=== PATIENT | male | born 1940 | race Caucasian/White ===

== ENCOUNTER 2018-05-27 07:30 | Inpatient (IN) | payer MEDICARE, OTHER ==
[2018-05-27] MEDS ORDERED: Aspirin 81mg Chewable Tab PO STA (07:59)
[2018-05-27] MEDS ORDERED: NITROGLYCERIN OINT 2% 1 INCH PACKET TP STA (08:00)
--- NOTE | 2018-05-27 08:01 | ED Physician Chart ---
ED Chief Complaint/HPI - Patient Information Date Seen:: 05/27/18 Time Seen:: 07:45 Chief Complaint:: Chest Pain History of Present Illness:: onset x one day of exertional, burning type chest pain with dyspnea and elevated BP; pt denies trauma, H/As, neck pain, cough, Abd. Pain, A/N/V/D/C, fever, chills, or urinary s/s Allergies:: Allergies Allergy/AdvReac Type Severity Reaction Status Date / Time No Known Allergies Allergy Verified 05/27/18 07:46 Vitals:: Vital Signs - 8 hr 05/27/18 07:47 Temp 97.6 F HR 71 RR 16 BP 166/102 O2 Sat % 99 Historian:: Patient Review:: Nurse's Note Reviewed, Old Chart Reviewed ED Review of Systems - Review of Systems General/Constitutional: No fever, No chills, No weight loss, No weakness, No diaphoresis, No edema, No loss of appetite Skin: No skin lesions, No rash, No bruising Head: No headache, No light-headedness Eyes: No loss of vision, No pain, No diplopia ENT: No earache, No nasal drainage, No sore throat, No tinnitus Neck: No neck pain, No swelling, No thyromegaly, No stiffness, No mass noted Cardio Vascular: Chest pain, No palpitations, No PND, No orthopnea, No edema Pulmonary: SOB, No cough, No sputum, No wheezing GI: No nausea, No vomiting, No diarrhea, No pain, No melena, No hematochezia, No constipation, No hematemesis G/U: No dysuria, No frequency, No hematuria, No nacturia Musculoskeletal: No bone or joint pain, No back pain, No muscle pain Endocrine: No polyuria, No polydipsia Psychiatric: Prior psych history, No depression, Anxiety, No suicidal ideation, No homicidal ideation, No auditory hallucination, No visual hallucination Hematopoietic: No bruising, No lymphadenopathy Allergic/Immuno: No urticaria, No angioedema Neurological: No syncope, No focal symptoms, No weakness, No paresthesia, No headache, No seizure, No dizziness, No confusion, No vertigo ED Past Medical History - Past Medical History Obtainable: Yes Past Medical History: HTN Family History: HTN Social History: Non Smoker, No Alcohol, No Drug Use, Surgical History: other (Back Surgery) Psychiatricy History: Other (Anxiety) Medication: Reviewed Family Medical History - Family Member Mother History Unknown: Yes ED Physical Exam - Physical Examination General/Constitutional: Awake, Well-developed, well-nourished, Alert, No distress, GCS 15, Non-toxic appearing, Ambulatory Head: Atraumatic Eyes: Lids, conjuctiva normal, PERRL, EOMI Skin: Nl inspection, No rash, No skin lesions, No ecchymosis, Well hydrated, No lymphadenopathy ENMT: External ears, nose nl, TM canals nl, Nasal exam nl, Lips, teeth, gums nl , Oropharynx nl, Tonsils nl Neck: Nontender, Full ROM w/o pain, No JVD, No nuchal rigidity, No bruit, No mass, No stridor Respiratory: Nl effort/Exclusion, Clear to Auscultation, No Wheeze/Rhonchi/Rales Cardio Vascular: RRR, No murmur, gallop, rubs, NL S1 S2, Carotid/Femoral/Distal pulses equal bilaterally GI: No tenderness/rebounding/guarding, No organomegaly, No hernia, Normal BS's, Nondistended, No mass/bruits, No McBurney tenderness : No CVA tenderness Extremities: No tenderness or effusion, Full ROM, normal strength in all extremities, No edema, Normal digits & nails Neuro/Psych: Alert/oriented, DTR's symmetric, Normal sensory exam, Normal motor strength, Judgement/insight normal, Mood normal, Normal gait, No focal deficits Misc: Normal back, No paraspinal tenderness ED Labs/Radiology/EKG Results - Lab Results Comments:: Reviewed - Radiology Results Comments:: NAD - EKG Interpretations EKG Time:: 07:55 Rate & Rhythm: 76; NSR Comments:: RBBB; non-specific st-t changes ED Septic Shock - . Is Septic Shock (SBP<90, OR Lactate>4 mmol\L) present?: No - <6hrs of presentation: Vital Signs: Vital Signs - 8 hr 05/27/18 07:47 Temp 97.6 F HR 71 RR 16 BP 166/102 O2 Sat % 99 ED Reassessment (Disposition) - Reassessment Reassessment Condition:: Improved - Diagnosis Diagnosis:: Chest Pain; Uncontrolled Hypertension; Dyspnea; Angina Pectoris; Unstable Angina - Aftercare/Follow up Instructions Aftercare/Follow-Up Instructions:: Counseled pt regarding lab results/diagnosis & need follow up, Counseled pt & family regarding lab results/diagnosis & need follow up - Patient Disposition Discharge/Transfer:: Acute Care w/in this hosp Accepting Physician:: Dr. Claudio Time Called:: 929 Time Responded:: 09:30 Admitted to:: Telemetry Spoke to:: Dr. Claudio Admitting Medical Physician:: Dr. Claudio Condition at Disposition:: Stable, Improved
[2018-05-27] MEDS ORDERED: Aspirin 81mg Chewable Tab ONE (08:02)
[2018-05-27] MEDS ORDERED: NITROGLYCERIN OINT 2% 1 INCH PACKET TP ONE (08:03)
[2018-05-27 08:25] LABS: % BASOPHILS 0.4 % (0.0-2.0); % EOSINOPHILS 5.9 % (0.0-5.0); % LYMPHOCYTES 29.2 % (20.0-50.0); % MONOCYTES 9.7 % (2.0-10.0); % NEUTROPHILS 54.8 % (40.0-80.0); EOSINOPHILE ABSOLUTE 0.3 Th/cmm (0.1-0.4); HEMATOCRIT 46.8 % (41.0-60); HEMOGLOBIN 15.7 gm/dL (12-16); LYMPHOCYTE ABSOLUTE 1.7 Th/cmm (1.5-3.0); MEAN CELL VOLUME 94.1 fl (80-99); MEAN CORPUSCULAR HEMOGLOBIN 31.5 pg (27.0-31.0); MEAN CORPUSCULAR HGB CONC 33.5 pg (28.0-36.0); MEAN PLATELET VOLUME 7.1 fl; MONOCYTE ABSOLUTE 0.6 Th/cmm (0.3-1.0); NEUTROPHILE ABSOLUTE 3.1 Th/cmm (1.8-8.0); PLATELET COUNT 201 Th/cmm (150-400); RED BLOOD COUNT 4.97 Mil/cmm (3.80-5.80); RED CELL DISTRIBUTION WIDTH 12.3 % (11.5-20.0); WHITE BLOOD COUNT 5.7 Th/cmm (4.8-10.8)
[2018-05-27 08:38] LABS: ALB/GLOB RATIO 1.5 (1.0-1.8); ALBUMIN 4.1 gm/dL (4.2-5.5); ALKALINE PHOSPHATASE 39 U/L (34-104); BILIRUBIN,TOTAL 0.5 mg/dL (0.3-1.0); BUN - UREA NITROGEN 11 mg/dL (7-25); CALCIUM SERUM 9.6 mg/dL (8.6-10.3); CARBON DIOXIDE 26.8 mEq/L (21.0-31.0); CHLORIDE 104 mEq/L (98-107); CHOLESTEROL 174 mg/dL (<200); CREATININE - SERUM 0.9 mg/dL (0.7-1.3); CREATININE KINASE 99 U/L (30-223); GLUCOSE 110 mg/dL (70-105); HDL -HIGH DENSITY LIPOPROTEIN 41 mg/dL (23-92); POTASSIUM SERUM 3.8 mEq/L (3.5-5.1); SGOT 18 U/L (13-39); SGPT/ALT 13 U/L (7-52); SODIUM SERUM 137 mEq/L (136-145); TOTAL PROTEIN,SERUM 6.9 gm/dL (6.0-8.3); TRIGLYCERIDES 137 mg/dL (<150)
[2018-05-27 08:47] LABS: INR 1.01 (0.5-1.4); PROTHROMBIN TIME (TEST) 10.5 SECONDS (9.5-11.5)
[2018-05-27 09:29] LABS: DDIMER QUANT 125 ng/mL (100-400)
--- NOTE | 2018-05-27 09:42 | Diagnostic Imaging Report ---
Portable chest x-ray HISTORY: Pain The heart size appears to be at the upper limits of normal. No focal pulmonary processes. No hilar or mediastinal abnormalities. IMPRESSION: No acute abnormalities
[2018-05-27] MEDS ORDERED: Morphine Sulfate 2 mg/mL 1mL Syr IVP PRN (10:19)
--- NOTE | 2018-05-28 00:28 | Consultation ---
DATE OF CONSULTATION: 05/27/[address] Forrest Gaytan. HISTORY OF PRESENT ILLNESS: This is a 77-year-old male patient who is normally seen by a physician at [facility], had been complaining of having dizziness secondary to hypotension as the patient has changed his diet. The patient yesterday was working at his brother's house where he had a lot of sweating. The patient took potassium and magnesium. This morning when he was having sex with his , post after the sex, complained of burning sensation in the chest and not feeling good. At this time, the patient took his blood pressure and was over 200/110, hence the patient came to the Emergency Room. The patient has stopped his blood pressure medication for 2 weeks. PAST MEDICAL HISTORY: The patient has a history of hypertension. FAMILY HISTORY: Unremarkable. SOCIAL HISTORY: No history of smoking or alcohol abuse. ALLERGIES: No known allergies. PHYSICAL EXAMINATION: VITAL SIGNS: Blood pressure on admission was 154/90, at home 200/100, pulse 77, and respirations 20. HEAD: Normocephalic. No lumps or bumps. EYES: Pupils equal, reactive to light. Fundi show AV nicking, sclerae white, conjunctivae pink. NECK: Carotid 2+. Normal upstroke. JVD flat. Thyroid not palpable. Lymph nodes not palpable. CHEST: Shows increased AP diameter. No kyphosis, scoliosis. LUNGS: Bilateral bronchovesicular breath sounds. HEART: PMI fifth intercostal space with lateral to midclavicular line. S1, S2. No S3, S4, soft systolic murmur. ABDOMEN: Soft. Liver, spleen not palpable. No organomegaly. Bowel sounds active. NEUROLOGIC: Unremarkable. EXTREMITIES: Peripheral pulses 2+. No pedal edema. CLINICAL IMPRESSION: Atypical chest pain and accelerated hypertension. PLAN: Admit the patient. We will get antihypertensive treatment. Get troponin level, EKG, echocardiogram. JOB# [id number]
--- NOTE | 2018-05-28 09:23 | History and Physical ---
History of Present Illness - HPI Chief Complaint: Chest Pain HPI: 77 y/o male who presents to [facility] ER for chest pain x one day. Patient describes pain to be exertional chest pain, burning type chest pain and associated dyspnea and elevated BP. Patient denies trauma, headaches, neck pain, cough, and abd. Pain, A/N/V/D/C, fever, chills, or urinary s/s. Patient has a past medical history of HTN. While in the ER patient's initial labwork revealed.... WBC 5.7 H/H 15.7/46.8 plat 201 Na 137 K 3.8 Bun/cr 11/0.9 glu 110 Trop 0.01 Chol 174 HDL 41 LDL 121 trig 137 Patient was subsequently admitted to a telemetry bed. Vital Signs: Last Vital Signs Temp 98.4 F 05/27/18 16:00 Pulse 68 05/27/18 16:00 Resp 17 05/27/18 16:00 BP 155/89 05/27/18 16:00 Pulse Ox 97 05/27/18 16:00 Past Medical History Cardiovascular: Report: HTN Pulmonary: Report: No Pertinent Hx FILTERER: Report: No Pertinent Hx GI: Report: No Pertinent Hx Psych: Report: No Pertinent Hx Musculoskeletal: Report: No Pertinent Hx Rheumatologic: Report: No pertinent Hx Infectious Disease: Report: No Pertinent Hx Renal/: Report: No Pertinent Hx Endocrine: Report: No Pertinent Hx Dermatology: Report: No Pertinent Hx - Past Surgical History Past Surgical History: No pertinent Hx Family Medical History - Family Member Mother History Unknown: Yes Living Status: Still Living Social History Smoke: No Alcohol: None Drugs: None Lives: Alone - Medications Home Medications: Home Medication Medication Instructions Recorded Type NK [No Home Meds] 05/27/18 History - Allergies Allergies/Adverse Reactions: Allergies Allergy/AdvReac Type Severity Reaction Status Date / Time No Known Allergies Allergy Verified 05/27/18 07:46 Review of Systems - Review of Systems Constitutional: Report: No Significant Eyes: Report: No Significant ENT: Report: No Significant Respiratory: Report: No Significant Cardiovascular: Report: Chest Pain Gastrointestinal: Report: No Significant Genitourinary: Report: No Significant Musculoskeletal: Report: No Significant Skin: Report: No Significant Neurological: Report: No Significant Physical Exam - Physical Exam HEENT: Report: Ears Nose Throat within normal limits, Pharnyx within normal limits Neck: Report: Within normal limits Cardiovascular Systems: Report: +s1/s2 noted, Regular, Rate and Rhythm Respiratory: Report: Breath Sounds are within normal limits Abdomen: Report: Non-tender to palpation Back: Report: Inspection of back is within normal limits. Extremities: Report: Non-tender to palpation. Skin: Report: Color of skin is within normal limits Neuro/Psych: Report: Mood affect is within normal limits, A+Ox3 - Lab Results All Lab Results last 24 hours: Laboratory Results - last 24 hr 05/27/18 08:12 D-Dimer 125 - Assessment Assessment: chest pain r/o ACS HTN - Plan Plan: admit to telemetry bed cardiology consult serial troponin levels
--- NOTE | 2018-05-29 14:15 | Cardiology ---
05/27/[address] Forrest Gaytan. M-MODE ECHOCARDIOGRAM: Mitral valve, anterior leaflet of mitral valve shows normal excursion, EF velocity. Posterior leaflet of the mitral valve shows normal excursion. Left ventricular posterior wall shows increased thickness, normal excursion. Interventricular septum shows increased thickness, normal excursion, hypertrophy of the left ventricle, ejection fraction 60%. Left atrium normal. Aortic root shows normal dimension, normal excursion of aortic leaflets. CONCLUSION: Hypertrophy of the left ventricle, ejection fraction 60%. 2D ECHO: Long axis view shows normal sized left ventricle with hypertrophy of the left ventricle. Left atrium normal. Aortic root shows normal dimension, normal excursion of aortic leaflet. Short axis view of mitral valve normal. Short axis view of aortic valve normal. Apical four chamber view showed normal sized left ventricle with hypertrophy of the left ventricle. Left atrium normal. Right ventricular cavity and right atrium normal, no pericardial effusion. CONCLUSION: Hypertrophy of the left ventricle, ejection fraction 60%. Doppler study shows mild mitral [id number], trace tricuspid regurgitation, right ventricular systolic pressure 20 mmHg. CONCLUSION: Hypertrophy of the left ventricle, ejection fraction 60%, mild mitral regurgitation, trace tricuspid regurgitation. [facility]# [id number]
== END 2018-05-27 16:05 | disposition left against medical advice (07) | DRG 311 ==
LOC: ER 07:30 → TELE 09:09
PROVIDERS: ADMIT Family Medicine; ATTEND Family Medicine
DX: I24.9 Acute ischemic heart disease, unspecified (principal); I10 Essential (primary) hypertension; F41.9 Anxiety disorder, unspecified; Z82.49 Family history of ischemic heart disease and other diseases of the circulatory system; Z53.21 Procedure and treatment not carried out due to patient leaving prior to being seen by health care provider
CPT/HCPCS: 36415-UA; 71045-TC; 80053-TC; 80061-TC; 82550-TC; 83880-TC; 84484-TC; 85025-TC; 85379-TC; 85610-TC; 93005; 94760; Z7610